=== PATIENT | male | born 1980 | race Caucasian/White ===

== ENCOUNTER → 2023-04-10 | Outpatient (CLI) | payer BC ==
[~2023-04-10] MED LIST: ASPIRIN E.C. 8181 MG PO; LIPITOR 40MG TA40 MG PO; NORVASC 5MG5 MG/TAB PO; PRINZIDE 12.5 M1 TAB PO; PROTONIX 40MG T40 MG PO; TRICOR145 MG PO
== END ==
LOC: COL.RAD 07:08
DX: K44.9 Diaphragmatic hernia without obstruction or gangrene (principal); K21.9 Gastro-esophageal reflux disease without esophagitis